=== PATIENT | female | born 2000 | race Caucasian/White ===

== ENCOUNTER 2023-01-26 10:54 | Emergency (ER) | payer BC ==
[~2023-01-26] VITALS: Ht 170 cm; Wt 54.0 kg
--- NOTE | 2023-01-26 11:25 | ED Abdominal Pain ---
General Chief Complaint: Abdominal/GI Problems Stated Complaint: ABD PAIN | FEVER | NAUSEA Nursing Triage Note: pt ambulates to with c/o medial abd pain that started this am. pt also complains of nausea, no vomiting. Source of Information: Patient Exam Limitations: No Limitations (BRETT STROUD APRN) History of Present Illness Date Seen by Provider: Jan 26, 2023 Time Seen by Provider: 11:02 Initial Comments 22-year-old female presents to the ER with complaint of mid abdominal pain starting this morning. She states the pain seems to be slightly worse in the left upper quadrant especially when lifting her leg. Reports that her abdomen feels better with her legs bent towards her chest. She reports that she felt feverish and was sweating. She reports nausea which has improved slightly, denies any vomiting. Denies diarrhea, dysuria, abnormal vaginal discharge. Last bowel movement was yesterday and normal. States that her menstrual cycle is supposed to start this week. (BRETT STROUD APRN) Allergies and Home Medications Allergies Coded Allergies: No Known Drug Allergies (Unverified , 01/26/23) Patient Home Medication List Home Medication List Reviewed: Yes (BRETT STROUD APRN) Review of Systems Review of Systems Constitutional: see HPI (BRETT STROUD APRN) Past Olznmee-Pwydao-Vnnauz Hx Patient Social History Tobacco Use?: No Substance use?: No Alcohol Use?: No (BRETT STROUD APRN) Immunizations Up To Date Influenza Vaccine Up-to-Date: No; Not Current (BRETT STROUD APRN) Past Medical History Last Menstrual Period: Dec 26, 2022 (BRETT STROUD APRN) Physical Exam Vital Signs Vital Signs - First Documented 01/26/23 11:11 Temp 36.2 Pulse 99 Resp 20 B/P (MAP) 116/62 (80) Pulse Ox 99 O2 Delivery Room Air (NASEEM LAST MD) Vital Signs Capillary Refill : Less Than 3 Seconds (BRETT STROUD APRN) Height/Weight/BMI Height: '" Weight: lbs. oz. kg; 18.00 BMI Method: General Appearance: WD/WN, no apparent distress Neck: supple, normal inspection Respiratory: lungs clear, normal breath sounds, no respiratory distress, no accessory muscle use Cardiovascular: regular rate, rhythm Gastrointestinal: normal bowel sounds, soft, tenderness (Left upper quadrant) Extremities: normal range of motion, normal inspection Neurologic/Psychiatric: alert, normal mood/affect Skin: normal color, warm/dry (BERTT STROUD APRN) Progress/Results/Core Measures Results/Orders Lab Results Laboratory Tests Test 01/26/23 11:15 01/26/23 11:20 Range/Units Urine Color YELLOW Urine Clarity CLEAR Urine pH 5.5 5-9 Urine Specific Porter >=1.030 1.016-1.022 Urine Protein NEGATIVE NEGATIVE Urine Glucose (UA) NEGATIVE NEGATIVE Urine Ketones NEGATIVE NEGATIVE Urine Nitrite NEGATIVE NEGATIVE Urine Bilirubin NEGATIVE NEGATIVE Urine Urobilinogen 0.2 < = 1.0 MG/DL Urine Leukocyte Esterase NEGATIVE NEGATIVE Urine RBC (Auto) NEGATIVE NEGATIVE Urine RBC NONE /HPF Urine WBC NONE /HPF Urine Squamous Epithelial Cells 0-2 /HPF Urine Crystals NONE /LPF Urine Bacteria NEGATIVE /HPF Urine Casts NONE /LPF Urine Mucus SMALL H /LPF Urine Culture Indicated NO White Blood Count 9.0 4.3-11.0 10^3/uL Red Blood Count 4.40 3.80-5.11 10^6/uL Hemoglobin 13.3 11.5-16.0 g/dL Hematocrit 40 35-52 % Mean Corpuscular Volume 90 80-99 fL Mean Corpuscular Hemoglobin 30 25-34 pg Mean Corpuscular Hemoglobin Concent 34 32-36 g/dL Red Cell Distribution Width 11.9 10.0-14.5 % Platelet Count 215 130-400 10^3/uL Mean Platelet Volume 11.0 9.0-12.2 fL Immature Granulocyte % (Auto) 0 % Neutrophils (%) (Auto) 58 42-75 % Lymphocytes (%) (Auto) 32 12-44 % Monocytes (%) (Auto) 6 0-12 % Eosinophils (%) (Auto) 3 0-10 % Basophils (%) (Auto) 1 0-10 % Neutrophils # (Auto) 5.2 1.8-7.8 10^3/uL Lymphocytes # (Auto) 2.9 1.0-4.0 10^3/uL Monocytes # (Auto) 0.5 0.0-1.0 10^3/uL Eosinophils # (Auto) 0.3 0.0-0.3 10^3/uL Basophils # (Auto) 0.1 0.0-0.1 10^3/uL Immature Granulocyte # (Auto) 0.0 0.0-0.1 10^3/uL Sodium Level 139 135-145 MMOL/L Potassium Level 3.4 L 3.6-5.0 MMOL/L Chloride Level 110 H 98-107 MMOL/L Carbon Dioxide Level 21 21-32 MMOL/L Anion Gap 8 5-14 MMOL/L Blood Urea Nitrogen 19 H 7-18 MG/DL Creatinine 0.93 0.60-1.30 MG/DL Estimat Glomerular Filtration Rate 90 BUN/Creatinine Ratio 20 Glucose Level 128 H 70-105 MG/DL Calcium Level 8.7 8.5-10.1 MG/DL Corrected Calcium 8.9 8.5-10.1 MG/DL Total Bilirubin 0.7 0.1-1.0 MG/DL Aspartate Amino Transf (AST/SGOT) 14 5-34 U/L Alanine Aminotransferase (ALT/SGPT) 8 0-55 U/L Alkaline Phosphatase 57 40-136 U/L C-Reactive Protein High Sensitivity 0.17 0.00-0.50 MG/DL Total Protein 6.6 6.4-8.2 GM/DL Albumin 3.8 3.2-4.5 GM/DL Lipase 47 8-78 U/L (NASEEM LAST MD) My Orders Orders - NASEEM LAST MD Iohexol Injection (Omnipaque 350 Mg/Ml 1 (01/26/23 12:15) Received Contrast (Hold Metformin- Contr (01/26/23 12:15) Ns (Ivpb) 100 Ml (Sodium Chloride 0.9% 1 (01/26/23 12:15) (NASEEM LAST MD) Medications Given in ED Current Medications Medications Dose Ordered Sig/Willian Route Start Time Stop Time Status Last Admin Dose Admin Iohexol 75 ml ONCE ONCE IV 01/26/23 12:15 01/26/23 12:28 DC 01/26/23 12:44 62 ML Ketorolac Tromethamine 15 mg ONCE ONCE IVP 01/26/23 11:30 01/26/23 11:31 DC 01/26/23 12:02 15 MG Ondansetron HCl 4 mg ONCE ONCE IVP 01/26/23 11:30 01/26/23 11:31 DC 01/26/23 12:02 4 MG Sodium Chloride 100 ml ONCE ONCE IV 01/26/23 12:15 01/26/23 12:28 DC 01/26/23 12:45 100 ML (NASEEM LAST MD) Vital Signs/I&O 01/26/23 01/26/23 11:11 13:49 Temp 36.2 Pulse 99 80 Resp 20 16 B/P (MAP) 116/62 (80) 111/69 Pulse Ox 99 98 O2 Delivery Room Air Room Air (NASEEM LAST MD) Blood Pressure Mean: 80 Progress Progress Note : Progress Note Patient seen and evaluated, resting in bed, no acute distress. Based on exam and symptoms, workup initiated including CBC, CMP, lipase, CRP, UA, urine . Urine was negative. 1149 Labs reviewed. CBC grossly normal. CMP shows slightly decreased potassium 3.4. Chloride slightly elevated 110. BUN slightly elevated 19. Lipase normal. Urinalysis negative for infection. Does show elevated urine specific gravity 1.030. CT abdomen pelvis ordered. 1335 CT reviewed. It shows a moderate amount of stool throughout the colon, more significant in the ascending colon and the rectum. Results discussed with patient. I discussed with patient options for treating her constipation. Will provide a list of recommendations for treatment of constipation. Patient is stable for discharge. Discharge instructions and return precautions provided. (BRETT STROUD APRN) Diagnostic Imaging Diagonstic Imaging: CT Plain Films/CT/US/NM/MRI: abdomen, pelvis Comments [facility], [place] NAME: [facility] REC#: [id number] PT STATUS: REG ER : 2000 PHYSICIAN: BRETT STROUD APRN ADMIT DATE: 01/26/23/ER Draft Date of Exam:01/26/23 CT ABDOMEN/PELVIS W PROCEDURE: CT abdomen and pelvis with contrast. TECHNIQUE: Multiple contiguous axial images were obtained through the abdomen and pelvis after administration of intravenous contrast. Auto Exposure Controls were utilized during the CT exam to meet ALARA standards for radiation dose reduction. All CT scans use one or more of the following dose optimizing techniques: Automated exposure control, MA and/or KvP adjustment based on patient size and exam type or iterative reconstruction. INDICATION: Abdominal pain. No prior studies are available for comparison. FINDINGS: The lung bases are clear. No discrete liver mass is identified. Gallbladder is unremarkable. There is no biliary ductal dilatation. The pancreas and spleen are unremarkable. No adrenal mass is identified. Kidneys are without calculi or hydronephrosis. Aorta is nonaneurysmal. Bowel loops appear nonobstructed. There is moderate stool throughout the colon, particularly the ascending colon as well as the rectum. No inflammatory changes are seen. The bladder and uterus are unremarkable. There is no free fluid or fluid collection identified. IMPRESSION: Moderate stool within the colon and rectum. The study is otherwise unremarkable. No acute feature is detected. Dictated on workstation # [id number] Dict: 01/26/23 1242 Trans: 01/26/23 1252 [id number] Interpreted by: KRISTOPHER ARCOS MD Electronically signed by: (BRETT STROUD APRN) Departure Impression Primary Impression: Constipation Qualified Codes: K59.00 - Constipation, unspecified Disposition: HOME, SELF-CARE Condition: Stable Departure-Patient Inst. Decision time for Depature: 13:36 (BRETT STROUD APRN) Referrals: NO,LOCAL PHYSICIAN (PCP/Family) Primary Care Physician Patient Instructions: Constipation, Adult (DC) Add. Discharge Instructions: Make sure you are drinking plenty of water. There are several options to treat constipation. One option would to be to take MiraLAX, 1 capful 3 times a day for the next couple of days. Once your stool becomes runny, decrease to once a day. If your stool continues to be runny when taking it once a day, you may stop taking it daily and only take as needed. Another option would be to take 7 capfuls of MiraLAX and mix in 32 ounces of Gatorade and drink over 6 hours. This may cause some abdominal cramping, but should produce a large amount of stool. You May also take Colace which is a stool softener. This will take longer to produce regular bowel movements. You may also try suppositories or enemas, these will provide faster results. Follow-up with primary care provider if pain continues. Return for any new, concerning, or worsening symptoms. All discharge instructions reviewed with patient and/or family. Voiced understanding. ATTENDING PHYSICIAN NOTE: I was physically present as attending physician in the emergency department during the care of this patient, but I was not directly involved in the decision making or delivery of care for this patient. (NASEEM LAST MD) BRETT STROUD APRN Jan 26, 2023 11:25 NASEEM LAST MD Jan 26, 2023 19:33
[2023-01-26 11:29] LABS: BASOPHILS # (AUTO) 0.1 10^3/uL (0.0-0.1); BASOPHILS % (AUTO) 1 % (0-10); EOSINOPHILS # (AUTO) 0.3 10^3/uL (0.0-0.3); EOSINOPHILS % (AUTO) 3 % (0-10); HEMATOCRIT 40 % (35-52); HEMOGLOBIN 13.3 g/dL (11.5-16.0); LYMPHOCYTES # (AUTO) 2.9 10^3/uL (1.0-4.0); LYMPHOCYTES % (AUTO) 32 % (12-44); MEAN CORPUSCULAR HEMOGLOBIN 30 pg (25-34); MEAN CORPUSCULAR HGB CONC 34 g/dL (32-36); MEAN CORPUSCULAR VOLUME 90 fL (80-99); MONOCYTES # (AUTO) 0.5 10^3/uL (0.0-1.0); MONOCYTES % (AUTO) 6 % (0-12); NEUTROPHILS # (AUTO) 5.2 10^3/uL (1.8-7.8); NEUTROPHILS % (AUTO) 58 % (42-75); PLATELET COUNT 215 10^3/uL (130-400)
[2023-01-26] MEDS ORDERED: NS IV 1000 ML 1,000 ML IV SCH (11:30)
[2023-01-26] MEDS ORDERED: KETOROLAC INJ 15 MG/ML VIAL IVP ONE (11:30)
[2023-01-26] MEDS ORDERED: ONDANSETRON INJECTION 4 MG/2 ML (SDV) IVP ONE (11:30)
[2023-01-26 11:36] LABS: BACTERIA,URINE NEGATIVE /HPF; BILIRUBIN,URINE NEGATIVE (NEGATIVE); CLARITY,URINE CLEAR; COLOR,URINE YELLOW; GLUCOSE, URINE (UA) NEGATIVE (NEGATIVE); KETONES,URINE NEGATIVE (NEGATIVE); LEUKOCYTE ESTERASE ,URINE NEGATIVE (NEGATIVE); NITRITE,URINE NEGATIVE (NEGATIVE); PH,URINE 5.5 (5-9); PROTEIN,URINE NEGATIVE (NEGATIVE); SQUAMOUS EPITHELIAL CELL,UR 0-2 /HPF
[2023-01-26 11:38] LABS: ALBUMIN 3.8 GM/DL (3.2-4.5); POTASSIUM 3.4 MMOL/L (3.6-5.0)
[2023-01-26 11:39] LABS: CALCIUM 8.7 MG/DL (8.5-10.1)
[2023-01-26 11:41] LABS: TOTAL PROTEIN 6.6 GM/DL (6.4-8.2)
[2023-01-26 11:42] LABS: BILIRUBIN,TOTAL 0.7 MG/DL (0.1-1.0)
[2023-01-26 11:44] LABS: CREATININE SERUM 0.93 MG/DL (0.60-1.30)
[2023-01-26] MEDS ORDERED: HOLD METFORMIN - RECEIVED CONTRAST 20 ML VIAL IV SCH (12:15)
[2023-01-26] MEDS ORDERED: NS 100 ML (IVPB) BAG IV ONE (12:15)
[2023-01-26] MEDS ORDERED: IOHEXOL 350 MG/ML 100 ML (OMNIPAQUE 350) VIAL IV ONE (12:15)
--- NOTE | 2023-01-26 12:52 | Diagnostic Imaging Report ---
PROCEDURE: CT abdomen and pelvis with contrast. TECHNIQUE: Multiple contiguous axial images were obtained through the abdomen and pelvis after administration of intravenous contrast. Auto Exposure Controls were utilized during the CT exam to meet ALARA standards for radiation dose reduction. All CT scans use one or more of the following dose optimizing techniques: Automated exposure control, MA and/or KvP adjustment based on patient size and exam type or iterative reconstruction. INDICATION: Abdominal pain. No prior studies are available for comparison. FINDINGS: The lung bases are clear. No discrete liver mass is identified. Gallbladder is unremarkable. There is no biliary ductal dilatation. The pancreas and spleen are unremarkable. No adrenal mass is identified. Kidneys are without calculi or hydronephrosis. Aorta is nonaneurysmal. Bowel loops appear nonobstructed. There is moderate stool throughout the colon, particularly the ascending colon as well as the rectum. No inflammatory changes are seen. The bladder and uterus are unremarkable. There is no free fluid or fluid collection identified. IMPRESSION: Moderate stool within the colon and rectum. The study is otherwise unremarkable. No acute feature is detected. Dictated by: Dictated on workstation # [id number]
[2023-01-26 13:49] VITALS: BP 111/69
== END 2023-01-26 13:49 | disposition home or self-care (01) ==
LOC: ER 10:59
DX: K59.00 Constipation, unspecified (principal)
CPT/HCPCS: 36415; 74177; 80053; 81000; 83690; 84703; 85025; 86141